=== PATIENT | female | born 1945 | race Caucasian/White ===

== ENCOUNTER 2019-03-25 11:36 | Emergency (ER) | payer OTHER ==
[~2019-03-25] VITALS: Ht 157.5 cm; Wt 68.0 kg
--- NOTE | 2019-03-25 11:42 | NUR ---
Patient arrived in the ED via ALS, c/o that started . Denied any fevers or chills. Patient is alert and oriented x4, respirations even and unlabored, speaking in full sentences and ambulating with a steady gait. VS WNL BP - , HR - , T - , RR - , O2 sat - on RA, Pain level */10. Denied any respiratory distress at this time. Lung sounds clear to auscultation on all lung ocampo, bowel sounds normoactive on all 4 quadrants. at bedside. Instructed patient to notify ED staff for any change in condition or worsening of symptoms while waiting to be seen by the provider. Patient verbalized understanding. Addendum: 03/25/19 at 1202 by [email or web address] Patient arrived in the ED via ALS, per facility patient is refusing to eat. Denied any fevers or chills. Patient is alert and oriented x1, respirations even and unlabored, speaking in full sentences. VS WNL, BS 111. Denied any respiratory distress at this time. Lung sounds clear to auscultation on all lung ocampo, bowel sounds normoactive on all 4 quadrants. Instructed patient to notify ED staff for any change in condition or worsening of symptoms while waiting to be seen by the provider. Patient verbalized understanding.
[2019-03-25 11:45] VITALS: BP_SYST 128
--- NOTE | 2019-03-25 11:45 | NUR ---
DANDY Walker at bedside examining the patient. Addendum: 03/25/19 at 1146 by [email or web address] DANDY Mark at bedside examining the patient.
[2019-03-25 12:59] LABS: BASOPHILS % (AUTO) 0.4 % (0.0-2.0); EOSINOPHILS # (AUTO) 0.1 K/uL (0.0-0.4); EOSINOPHILS % (AUTO) 1.5 % (0.0-4.0); HEMATOCRIT 38.1 % (36-48); HEMOGLOBIN 12.8 g/dL (12.0-16.0); LYMPHOCYTES % (AUTO) 23.1 % (20.5-51.5); MEAN CORPUSCULAR HEMOGLOBIN 30 pg (27-31); MEAN CORPUSCULAR HGB CONC 34 % (32-36); MEAN CORPUSCULAR VOLUME 89 fL (79.0-98.0); MONOCYTES # (AUTO) 0.5 K/uL (0.0-1.0); MONOCYTES % (AUTO) 5.9 % (1.7-9.3); NEUTROPHILS # (AUTO) 5.9 K/uL (1.8-7.7); NEUTROPHILS % (AUTO) 69.1 % (40.0-70.0); PLATELET COUNT (AUTO) 284 K/uL (130-430); RED CELL DISTRIBUTION WIDTH 13.7 % (9.0-15.0); WHITE BLOOD COUNT (AUTO) 8.6 K/uL (4.8-10.8)
[2019-03-25 13:13] LABS: ANION GAP 7 (5-15); CALCIUM 10.9 mg/dL (8.4-11.0); CHLORIDE 94 mmol/L (98-107); CREATININE 0.71 mg/dL (0.55-1.30); GLUCOSE 172 mg/dL (70-99); POTASSIUM 4.7 mmol/L (3.5-5.1); SODIUM SERUM 128 mmol/L (136-145); UREA NITROGEN, BLOOD 16 mg/dL (8-21)
[2019-03-25 13:19] LABS: ALANINE AMINOTRANSFERASE 26 U/L (12-78); ALBUMIN 3.2 g/dL (3.4-4.8); ASPARTATE AMINOTRANSFERASE 24 U/L (10-37); TOTAL BILIRUBIN 0.8 mg/dL (0.0-1.0)
[2019-03-25] MEDS ORDERED: NACL 0.9% 1,000 ML IV ONE (13:30)
--- NOTE | 2019-03-25 13:45 | NUR ---
# 24 gauge angiocath placed to Right hand using aseptic technique as ordered by Dr. Walker. Blood return noted. Flushed with 10mL of normal saline. No evidence of infiltration noted. NS 0.9% running wide open. Patient tolerated the procedure well. Instructed to notify ED staff for any s/s of infiltration or fluid overload. Patient verbalized understanding.
--- NOTE | 2019-03-25 13:47 | NUR ---
Gave a cup of chocolate pudding to the patient.
--- NOTE | 2019-03-25 13:55 | NUR ---
Administered Lactulose 60mg PO as ordered by Dr. Walker. Please refer to EMAR for further details. Patient tolerated the medications well. Instructed the patient to notify ED staff for any adverse reactions. Patient verbalized understanding.
[2019-03-25] MEDS ORDERED: LACTULOSE 20 GM/30 ML UDC PO ONE (14:00)
--- NOTE | 2019-03-25 14:47 | NUR ---
Patient is resting comfortably in bed, respirations even and unlabored, speaking in full sentences. VS WNL.
[2019-03-25 15:50] VITALS: BP_SYST 116
--- NOTE | 2019-03-25 15:50 | NUR ---
Patient given written and verbal discharge instructions and verbalizes understanding. ER MD discussed with patient the results and treatment provided. Patient in stable condition. ID arm band removed. IV catheter removed intact and dressing applied, no active bleeding. Rx of Lactulose given. Patient educated on pain management and to follow up with PMD. Pain Scale 0/10. Opportunity for questions provided and answered. Medication side effect fact sheet provided.
== END 2019-03-25 15:50 | disposition home or self-care (01) ==
LOC: SED 11:36
DX: K59.00 Constipation, unspecified (principal); E87.1 Hypo-osmolality and hyponatremia; E11.9 Type 2 diabetes mellitus without complications; F03.90 Unspecified dementia, unspecified severity, without behavioral disturbance, psychotic disturbance, mood disturbance, and anxiety; N18.9 Chronic kidney disease, unspecified; E78.5 Hyperlipidemia, unspecified; M81.0 Age-related osteoporosis without current pathological fracture; F29 Unspecified psychosis not due to a substance or known physiological condition; F20.9 Schizophrenia, unspecified
CPT/HCPCS: 36415; 80053; 85025; 99283; J7030